=== PATIENT | male | born 1990 | race Caucasian/White ===

== ENCOUNTER 2018-07-06 14:52 | Emergency (ER) | payer MEDICAID ==
[~2018-07-06] VITALS: Ht 172.7 cm; Wt 72.5 kg
[~2018-07-06 14:52] MED LIST: NAPR-56 PO
[2018-07-06] MEDS ORDERED: ibuprofen tablet 400 MG TABLET PO ONE (16:50)
[2018-07-06] MEDS ORDERED: acetaminophen 325mg tablet PO ONE (16:50)
[2018-07-06] MEDS ORDERED: NAPR-56 PO (17:31)
[2018-07-06] MEDS ORDERED: SULF1TAB49 PO (17:31)
== END 2018-07-06 17:56 | disposition home or self-care (01) ==
LOC: ER 14:52
DX: S62.614A Displaced fracture of proximal phalanx of right ring finger, initial encounter for closed fracture (principal); W22.8XXA Striking against or struck by other objects, initial encounter; Y93.89 Activity, other specified; Y92.89 Other specified places as the place of occurrence of the external cause; Y99.8 Other external cause status; F12.10 Cannabis abuse, uncomplicated; F15.10 Other stimulant abuse, uncomplicated; F11.10 Opioid abuse, uncomplicated
CPT/HCPCS: 29125; 73130; 99284

== ENCOUNTER 2018-07-09 21:20 | Emergency (ER) | payer MEDICAID ==
[~2018-07-09] VITALS: Ht 172.7 cm; Wt 74.2 kg
[~2018-07-09 21:20] MED LIST changes: +SULF1TAB49 PO
[2018-07-09 21:37] VITALS: BP 128/81
[2018-07-09] MEDS ORDERED: DOXY100C43 PO (23:35)
[2018-07-09] MEDS ORDERED: CEPH-572 PO (23:35)
[2018-07-09] MEDS ORDERED: penicillin G benzathine 1.2 million unit/2ml syringe IM ONE (23:40)
== END 2018-07-10 00:12 | disposition home or self-care (01) ==
LOC: ER 21:20
DX: L03.011 Cellulitis of right finger (principal); F12.90 Cannabis use, unspecified, uncomplicated; F15.90 Other stimulant use, unspecified, uncomplicated; F11.90 Opioid use, unspecified, uncomplicated
CPT/HCPCS: 96372; 99283; J0561

== ENCOUNTER 2022-08-03 06:37 | Emergency (ER) | payer MEDICAID ==
[~2022-08-03] VITALS: Ht 172.7 cm; Wt 75.0 kg
[~2022-08-03 06:37] MED LIST changes: -SULF1TAB49 PO
[2022-08-03 06:40] VITALS: BP 153/105
== END 2022-08-03 08:13 | disposition home or self-care (01) ==
LOC: ER 06:38
DX: H92.01 Otalgia, right ear (principal); R20.0 Anesthesia of skin; F15.10 Other stimulant abuse, uncomplicated; F12.10 Cannabis abuse, uncomplicated
CPT/HCPCS: 70450; 99284

== ENCOUNTER 2022-08-29 11:54 | Emergency (ER) | payer MEDICAID ==
[~2022-08-29] VITALS: Ht 172.7 cm; Wt 75.0 kg
--- NOTE | 2022-08-29 13:17 | NUR ---
Pt wheeled from the lobby to the room. Linens changed. Pt states "Everytime I get up I am shitting myself. I can't hold it. Pt not cooperative with exam. Pt refused to answer questions. When asked about drug use he states "Yes, I use everything!" Pt refused to answer when last used. Pt yelling curse words. Pt states "I am not answering questions from you!" Mother at bedside assisting with cleaning up pt.
[2022-08-29] MEDS ORDERED: normal saline 1000ML IV soln IVB ONE (15:10)
[2022-08-29] MEDS ORDERED: pantoprazole 40 MG vial IV ONE (15:10)
[2022-08-29] MEDS ORDERED: pantoprazole 40 MG/NS 100ML add-vantage BAG IV ONE (15:15)
[2022-08-29] MEDS ORDERED: pantoprazole 40MG/NS 100ML BAG 100 ML IV ONE (15:20)
[2022-08-29 15:35] LABS: BASOPHILS % (AUTO) 0.3 % (0-1); EOSINOPHILS # (AUTO) 0.1 X10'3 (0-0.9); EOSINOPHILS % (AUTO) 0.8 % (0-6); HEMATOCRIT 46.3 % (42.0-52.0); HEMOGLOBIN 15.9 g/dl (14.0-17.9); LYMPHOCYTES # (AUTO) 0.7 X10'3 (1.1-4.8); LYMPHOCYTES % (AUTO) 7.4 % (21-51); MEAN CORPUSCULAR HEMOGLOBIN 31.6 PG (27.0-31.0); MEAN CORPUSCULAR HGB CONC 34.3 g/dL (33.0-36.5); MONOCYTES # (AUTO) 1.3 X10'3 (0-0.9); MONOCYTES % (AUTO) 12.9 % (2-12); NEUTROPHILS # (AUTO) 7.8 X10'3 (1.8-7.7); NEUTROPHILS % (AUTO) 78.6 % (42-75); PLATELET COUNT 272 X10'3 (140-440); RED BLOOD COUNT 5.04 X10'6 (4.70-6.10); RED CELL DISTRIBUTION WIDTH 13.3 % (11.5-14.5); WHITE BLOOD COUNT 9.9 X10'3 (4.5-11.0)
[2022-08-29 15:48] LABS: ALANINE AMINOTRANSFERASE 27 U/L (12-78); ALBUMIN 4.1 G/DL (3.4-5.0); ALBUMIN/GLOBULIN RATIO 1.2 (1.1-1.5); ALKALINE PHOSPHATASE 80 IU/L (46-116); ANION GAP 10 (8-16); ASPARTATE AMINO TRANSFERASE 20 U/L (10-37); BILIRUBIN,TOTAL 0.6 MG/DL (0.1-1.0); BLOOD UREA NITROGEN 15 MG/DL (7-18); BUN/CREATININE RATIO 18.8 (5.4-32.0); CHLORIDE 104 MMOL/L (99-107); GLUCOSE 114 MG/DL (70-104); LIPASE 89 U/L (73-393); POTASSIUM 3.7 MMOL/L (3.5-5.1); SODIUM 139 MMOL/L (135-145); TOTAL CARBON DIOXIDE 24.7 MMOL/L (24-32); TOTAL PROTEIN 7.5 G/DL (6.4-8.2); eGFR > 90 ML/MIN
[2022-08-29] MEDS ORDERED: loperamide 2mg capsule PO ONE (16:50)
[2022-08-29 18:34] VITALS: BP 162/98
[2022-08-29] MEDS ORDERED: DIPH-186 PO (19:57)
[2022-08-30 09:42] LABS: C DIFF SPECIMEN=DIARRHEA? ACCEPTABLE; C DIFFICILE TOXINS A&B NEGATIVE (Neg)
== END 2022-08-29 20:12 | disposition home or self-care (01) ==
LOC: ER 11:54
DX: R10.9 Unspecified abdominal pain (principal); R19.7 Diarrhea, unspecified; R11.2 Nausea with vomiting, unspecified; F17.200 Nicotine dependence, unspecified, uncomplicated; F12.10 Cannabis abuse, uncomplicated; F15.10 Other stimulant abuse, uncomplicated; F11.10 Opioid abuse, uncomplicated; Z79.899 Other long term (current) drug therapy
CPT/HCPCS: 36415; 80053; 83690; 85025; 87045; 87046; 87324; 87449; 89055; 96365; 96366; 99284; C9113; J7030

== ENCOUNTER 2022-12-01 20:07 | Emergency (ER) | payer MEDICAID ==
[~2022-12-01] VITALS: Ht 170.2 cm; Wt 75.0 kg
[~2022-12-01 20:07] MED LIST changes: +DIPH-186 PO
[2022-12-01 20:14] VITALS: BP 137/104
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
[2022-12-02] MEDS ORDERED: BENZ-38 PO (09:13)
[2022-12-02] MEDS ORDERED: AMOX-117 PO (09:13)
[2022-12-02] MEDS ORDERED: ALBU6.7H14 INH (09:13)
[2022-12-02] MEDS ORDERED: PRED20TA PO (09:13)
== END 2022-12-02 06:22 | disposition left against medical advice (07) ==
LOC: ER 20:07
DX: R05.9 Cough, unspecified (principal); Z53.21 Procedure and treatment not carried out due to patient leaving prior to being seen by health care provider
CPT/HCPCS: 99281

== ENCOUNTER 2022-12-02 07:59 | Emergency (ER) | payer MEDICAID ==
[~2022-12-02] VITALS: Ht 170.2 cm; Wt 77.3 kg
[2022-12-02 08:08] VITALS: BP 161/96
[2022-12-02] MEDS ORDERED: BENZ-38 PO (09:13)
[2022-12-02] MEDS ORDERED: ALBU6.7H14 INH (09:13)
[2022-12-02] MEDS ORDERED: PRED20TA PO (09:13)
[2022-12-02] MEDS ORDERED: AMOX-117 PO (09:13)
== END 2022-12-02 10:28 | disposition home or self-care (01) ==
LOC: ER 08:00
DX: J45.909 Unspecified asthma, uncomplicated (principal); J20.9 Acute bronchitis, unspecified; F17.200 Nicotine dependence, unspecified, uncomplicated; F12.90 Cannabis use, unspecified, uncomplicated; F15.90 Other stimulant use, unspecified, uncomplicated; F11.90 Opioid use, unspecified, uncomplicated; Z79.899 Other long term (current) drug therapy
CPT/HCPCS: 71046; 99283

== ENCOUNTER 2024-08-09 12:46 | Emergency (ER) | payer MEDICAID ==
[~2024-08-09] VITALS: Ht 172.7 cm; Wt 84.3 kg
[~2024-08-09 12:46] MED LIST changes: +ALBU6.7H14 INH
[2024-08-09 13:06] VITALS: BP 143/88; PULSE 107; TEMP 98.4; O2SAT 100
[2024-08-09 14:08] LABS: BASOPHILS % (AUTO) 0.3 % (0-1); EOSINOPHILS # (AUTO) 0.2 X10'3 (0-0.9); EOSINOPHILS % (AUTO) 1.4 % (0-6); HEMATOCRIT 38.4 % (42.0-52.0); HEMOGLOBIN 12.8 g/dl (14.0-17.9); LYMPHOCYTES % (AUTO) 8.4 % (21-51); MEAN CORPUSCULAR HEMOGLOBIN 31.4 PG (27.0-31.0); MEAN CORPUSCULAR HGB CONC 33.5 g/dL (33.0-36.5); MEAN CORPUSCULAR VOLUME 93.7 FL (78-98); MEAN PLATELET VOLUME 6.8 FL (7.4-10.4); MONOCYTES # (AUTO) 0.9 X10'3 (0-0.9); MONOCYTES % (AUTO) 8.2 % (2-12); NEUTROPHILS # (AUTO) 9.5 X10'3 (1.8-7.7); NEUTROPHILS % (AUTO) 81.7 % (42-75); PLATELET COUNT 246 X10'3 (140-440); RED BLOOD COUNT 4.09 X10'6 (4.70-6.10); WHITE BLOOD COUNT 11.6 X10'3 (4.5-11.0)
[2024-08-09 14:47] LABS: ALANINE AMINOTRANSFERASE 19 U/L (12-78); ALBUMIN 3.3 G/DL (3.4-5.0); ALKALINE PHOSPHATASE 77 IU/L (46-116); ANION GAP 7 (8-16); ASPARTATE AMINO TRANSFERASE 15 U/L (10-37); BILIRUBIN,TOTAL 0.3 MG/DL (0.1-1.0); BLOOD UREA NITROGEN 15 MG/DL (7-18); BUN/CREATININE RATIO 18.3 (10.0-20.0); C-REACTIVE PROTEIN 6.15 MG/DL (0.0-0.5); CALCIUM 8.6 MG/DL (8.5-10.1); CHLORIDE 107 MMOL/L (99-107); CREATININE 0.82 MG/DL (0.60-1.10); GLUCOSE 144 MG/DL (70-104); POTASSIUM 3.3 MMOL/L (3.5-5.1); SODIUM 141 MMOL/L (135-145); TOTAL PROTEIN 6.6 G/DL (6.4-8.2); eCRCL 125 ML/MIN; eGFR > 90 ML/MIN
[2024-08-09] MEDS ORDERED: iohexol 300mg/ml 100ml inj. ONE (14:52)
[2024-08-09 16:09] VITALS: RESP 18
[2024-08-09 16:37] LABS: URINE AMPHETAMINE SCREEN POSITIVE (Neg); URINE BARBITUATE SCREEN NEGATIVE (Neg); URINE BENZODIAZEPINES SCREEN NEGATIVE (Neg); URINE CANNABINOID SCREEN POSITIVE (Neg); URINE COCAINE SCREEN NEGATIVE (Neg); URINE METHADONE SCREEN NEGATIVE (Neg); URINE OPIATE SCREEN NEGATIVE (Neg); URINE PHENCYCLIDINE SCREEN NEGATIVE (Neg)
== END 2024-08-09 16:11 | disposition left against medical advice (07) ==
LOC: ER 12:47
DX: L03.113 Cellulitis of right upper limb (principal); F12.90 Cannabis use, unspecified, uncomplicated; F15.90 Other stimulant use, unspecified, uncomplicated; Z79.899 Other long term (current) drug therapy
CPT/HCPCS: 36415; 73130; 73201; 80053; 80305; 83605; 84145; 85025; 85651; 86140; 99285; Q9967

== ENCOUNTER 2025-05-23 11:34 | Emergency (ER) | payer MEDICAID ==
[~2025-05-23] VITALS: Ht 172.7 cm; Wt 76.9 kg
[2025-05-23 11:37] VITALS: BP 157/107; PULSE 98; O2SAT 99
--- NOTE | 2025-05-23 12:06 | RADIOLOGY REPORT ---
Indication: RIGHT ARM PAIN Technique: DI FOREARM,INCL.ONE JOINTFOREARM Comparison: None FINDINGS/IMPRESSION: Mild irregularity of the base of the 1st metacarpal bone. Correlate with point tenderness to exclude fracture. Recommend dedicated radiograph of the right hand to evaluate. Soft tissue emphysema , edema along the radial, dorsal aspect of the mid right arm
[2025-05-23 12:30] VITALS: RESP 16
[2025-05-23] MEDS: ketorolac trometh 15mg/ml vial 15 MG/ML ML IM ONE (12:30)
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
[2025-05-23] MEDS: LIDOcaine 1% W/epiNEPHrine 1:100,000 20ml vial IJ ONE (12:52)
--- NOTE | 2025-05-23 13:10 | RADIOLOGY REPORT ---
CLINICAL INDICATION: Hand Pain TECHNIQUE: left DI HAND, COMPLETE (3VW MIN) Comparison: DI FOREARM,INCL.ONE JOINT on DOS: 05/23/25, CT CT UPPER EXTREMITIES on DOS: 08/09/24, DI H AND, COMPLETE (3VW MIN) on DOS: 08/09/24 FINDINGS/IMPRESSION: : There is no evidence of acute fracture or dislocation. Soft tissues are unremarkable.
[2025-05-23] MEDS ORDERED: AMOX-580 PO (13:12)
[2025-05-23 13:17] VITALS: TEMP 97.8
== END 2025-05-23 13:18 | disposition home or self-care (01) ==
LOC: ER 11:35
DX: S51.811A Laceration without foreign body of right forearm, initial encounter (principal); F12.90 Cannabis use, unspecified, uncomplicated; F15.90 Other stimulant use, unspecified, uncomplicated; F11.90 Opioid use, unspecified, uncomplicated; F19.90 Other psychoactive substance use, unspecified, uncomplicated; Z79.899 Other long term (current) drug therapy; W54.0XXA Bitten by dog, initial encounter; Y93.89 Activity, other specified; Y92.89 Other specified places as the place of occurrence of the external cause; Y99.8 Other external cause status
CPT/HCPCS: 12001; 73090; 73130; 96372; 99284; J1885; J7030; A6258; A6449